=== PATIENT | female | born 1970 | race American Indian/Alaskan Native ===

== ENCOUNTER 2021-05-03 03:47 | Emergency (ER) | payer SELFPAY ==
[2021-05-03] MEDS ORDERED: Iopamidol 755 Mg/ML 100 ML Bottle IVPUSH ONE (03:48)
[2021-05-03 04:09] LABS: ANION GAP 14.1 mEq/L (7-13); CHLORIDE,CL 97 mmol/L (98-107); SODIUM,NA 133 mmol/L (136-145)
[2021-05-03 04:39] LABS: AMPHETAMINES,URINE NEGATIVE (NEGATIVE); BARBITURATES,URINE NEGATIVE (NEGATIVE); BENZODIAZEPINE,URINE NEGATIVE (NEGATIVE); MDMA (ECSTASY), URINE NEGATIVE (NEGATIVE); METHADONE,URINE NEGATIVE (NEGATIVE); METHAMPHETAMINES,URINE NEGATIVE (NEGATIVE); OPIATES,URINE NEGATIVE (NEGATIVE); OXYCODONE,URINE NEGATIVE (NEGATIVE); PHENCYCLIDINE,URINE NEGATIVE (NEGATIVE); TCA,URINE NEGATIVE (NEGATIVE)
[2021-05-03] MEDS ORDERED: Sodium Chloride 0.9% 1,000 ML IV ONE (04:51)
[2021-05-03] MEDS ORDERED: Metoclopramide 10 MG/2 ML SDV IVPUSH ONE (04:55)
[2021-05-03] MEDS ORDERED: Ketorolac 30 MG/ML SDV IVPUSH ONE (04:57)
[2021-05-03] MEDS ORDERED: Metoclopramide 10 MG/2 ML SDV ONE (04:57)
[2021-05-03] MEDS ORDERED: Ciprofloxacin 500 MG Tab PO ONE (05:14)
[2021-05-03] MEDS ORDERED: Meclizine 12.5 MG Tab PO ONE (05:45)
== END 2021-05-03 06:57 | disposition home or self-care (01) ==
LOC: DL.ED 03:47
DX: N39.0 Urinary tract infection, site not specified (principal); R42 Dizziness and giddiness; R51.9 Headache, unspecified; Z88.8 Allergy status to other drugs, medicaments and biological substances; Z88.1 Allergy status to other antibiotic agents
CPT/HCPCS: 36415; 70450; 70460; 70491; 80053; 80305-QW; 80307; 81001; 82140; 82947; 84443; 84703; 85025; 85610; 86140; 87086; 87088; 87186; 93010; 96374; 99284; 99284-25; A9270-GY; J1885; J7030; Q9967